=== PATIENT | female | born 1980 | race Caucasian/White ===

== ENCOUNTER 2021-03-09 10:32 | Outpatient (REF) | payer OTHER, SELFPAY ==
[2021-03-12 15:01] LABS: HPV mRNA E6/E7 rflx Not Detected (Not Detected)
== END 2021-03-09 10:33 | disposition home or self-care (01) ==
LOC: HO.LAB 10:32
PROVIDERS: PCP Hospitalist; Visit Provider Advanced Practice Midwife
DX: Z01.419 Encounter for gynecological examination (general) (routine) without abnormal findings (principal); Z79.899 Other long term (current) drug therapy
CPT/HCPCS: 87624; 88142

== ENCOUNTER 2025-05-06 13:28 | Outpatient (AMB) | payer OTHER, SELFPAY ==
--- NOTE | 2025-05-06 13:31 | MHC.OFFVIS ---
Vital Signs 05/06/25 13:34 Height 5 ft 10 in Weight 196 lb BMI 28.1 BP 122/74 Blood Pressure Location Rt brachial Position Sitting Intake Visit Reasons: New patient Annual Allergies oxycodone (From Percocet) Adverse Reaction (Mild, Verified 05/06/25 13:41) NAUSEA & VOMITING seasonal Allergy (Unknown, Uncoded 05/06/25 13:41) unknown Medication List - Last Reconciled 05/06/25 by Arianna Zhang CNM fluticasone propionate 50 mcg/actuation 1 spray intranasal DAILY loratadine (Claritin) 10 mg PO DAILY norethindrone-ethin estradiol 1-35 mg-mcg (Nortrel) 1 tab PO DAILY sertraline 12.5 mg PO Is last menstrual period known: Yes Last menstrual period: 04/28/25 HPI HPI New patient Annual: Details: Patient is here for practice nurse annual exam. It has been a few years she has not sexually active for the last 10 years since her divorce. She is on control pills and wants to stay on them because she likes how they make her periods and she does not want to change them currently she gets them through her primary care provider. She has Ahsan's and is going to be seeing an customer service officer to discuss that coming up. She is healthy she walks the dog every day she takes care of her mother who is legally blind and lives with her along with her 17-year-old daughter who is home schooled. On the same property her brother and his live with the dog so they all support 1 another. She is starting to experience some hot flashes but oddly enough during the placebo week only. She is wondering about brain fog and other symptoms. She recently had a colonoscopy and is all clear for the next 10 years she does strength training and a circuit in her neighborhood at least twice a week. She has no concerns at all about infections or abnormal discharge and declines cultures. She had a primary for her baby who was breech put who would not be verted. She was part of the centering group for her during her care 17 years ago at our midwifery practice at [facility], on the 2nd floor [facility]. [facility] Medical History Dermoid cyst Surgical History Hx of section Social History Alcohol intake: current Alcohol intake frequency: holidays/special occasions only Patient Tobacco Use Status: Never used Tobacco Gender identity: Female Female Reproductive History Menstrual Age of Menarche: 10 Duration of menses: 3-5 days Date of last menstrual period: 04/28/25 control method: pills Total pregnancies: 1 Number of Living Children: 1 Date of last pap smear: 03/10/21 History of abnormal pap smear: Yes (History for the 2020 Pap indicates that the 2017 Pap had positive HPV.) History of abnormal mammogram: No Physical Exam Vital Signs: Last Vital Signs BP 122/74 05/06/25 13:34 BMI result Body Mass Index 28.1 Const General: healthy appearing, comfortable, no acute distress, well developed and alert Nutritional Appearance: average body habitus Orientation/consciousness: patient oriented x3 Limitations: no limitations HEENT Head: Yes normocephalic Neck Neck: Yes normal visual inspection Chest Chest palpation & inspection: normal inspection of the chest Breast/axilla inspection: normal inspection of the breasts and normal inspection of the axillae Breast/axilla palpation: normal palpation of the breasts and normal palpation of the axillae Resp Effort & Inspection: normal respiratory effort GI Inspection: Yes normal to inspection, No Abdominal wall edema and No distended Palpation (GI): Soft to palpation and nontender Other: External exam within normal limits vagina is pink and moist healthy appearing normal scant vaginal mucus nulliparous cervix is pink and smooth healthy appearing with mucus plug consistent with OCP use. Uterus small midposition mobile nontender adnexa nontender nonenlarged good tone with Kegel. General: Yes bladder normal to palpation External Female Exam: normal external appearance and normal appearance of the urethra Speculum Exam - Vagina: normal appearance of the vagina, normal palpation and normal vaginal discharge Speculum Exam - Cervix: normal appearance of the cervix, normal palpation and nontender Bimanual exam- vagina & uterus: normal bimanual exam, normal palpation, uterine size normal, bladder normal to palpation, consistency normal, normal palpation, uterine mobility normal, uterine shape normal, No Cervical tenderness present, non-tender and no cervical motion tenderness Bimanual Exam- Adnexa, other: normal adnexae, no masses, normal and No adnexal tenderness Neuro General: patient oriented x3 Results Reviewed Results Reviewed: Gynecologic Cytology [id number] Name: Danae Downing Age/Sex: 40/F Attending: Arianna Zhang CNM : 1980 Submitted by: Arianna Zhang CNM Copies to: Silvano Dawson MD MR #: [id number] Status: DEP REF Collected: 03/09/21 Location: .LAB Received: 03/10/21 Interpretation Satisfactory for evaluation. No endocervical cells seen. Cytolysis noted. Negative for intraepithelial lesion or malignancy. HPV mRNA E6/E7: NOT DETECTED This assay detects E6/E7 viral messenger RNA (mRNA) from 14 high-risk HPV types (16, 18, 31, 33, 35, 39, 45, 51, 52, 56, 58, 59, 66, 68) HPV testing performed by [facility], [place], [place]. See reference laboratory portion of the EMR for entire report. Clinical Information LMP: 02/23/21 Previous PAP test: 2017, Neg HPV+ Material Received ThinPrep- Cervical Copies To Silvano Dawson MD [address] [place], [place] [id number] Arianna Zhang [address] Bergeron [address] [place] [address] [id number] Electronically Signed By: KELLY Preciado (ASCP) 03/19/21 1253 The Pap Test is a screening procedure with the inherent possibility of both false negative and false positive results. Results should be interpreted in the context of historic and current clinical findings. Reliability of the Pap Test is enhanced by performing the test on a regular repetitive basis. Patient: Danae Downing Age/Sex: 40/F MR#: [id number] Page 1 of 1 Assessment & Plan Assessment & Plan (1) Well woman exam with routine gynecological exam: Code(s): Z01.419 - Encounter for gynecological examination (general) (routine) without abnormal findings Category: Medical (2) Counseling for control, oral contraceptives: Code(s): Z30.09 - Encounter for other general counseling and advice on contraception Category: Medical (3) Cervical cancer screening: Comment: (history for the 2020 Pap indicated that the 2017 Pap was negative cytology with positive HPV) 03/09/21 pap = neg /neg hpv; 05/06/2025 Pap done, Code(s): Z12.4 - Encounter for screening for malignant neoplasm of cervix Category: Medical (4) Perimenopause: Code(s): N95.1 - Menopausal and female climacteric states Category: Medical Plan -----Discussed in this visit the following: healthy balanced diet, regular and consistent exercise, getting recommended health screens, doing the best she can for her particular health concerns, kegel exercises, pap smear screening and followup recommendations, mammography screening and SBE, normal changes in cycles in her life stage--- . For now she wants to continue on the OCPs and we will continue getting them with her primary care provider as that is working well currently. Discussed raghu menopausal changes and considerations for remaining on hormone after menopause. I gave her the name of practitioner who is got expertise in menopausal discussions, Mary Carnes CNM, whom she knows, and from our practice she was giving , and she will look her up and consider consultation with her should she choose. If this Pap is negative she may opt to just return for Pap in 5 years she declined for me to give her the prescription for the control pills at this time she will continue with her primary providing them she is up-to-date on her mammograms. Orders: Orders Pap Smear Today Z01.419 - Encounter for gynecological examination (general) (routine) without abnormal findings, Z12.4 - Encounter for screening for malignant neoplasm of cervix Coding Level of Care Code New Pt Prev Care 40-64y([id number]) Diagnoses Well woman exam with routine gynecological exam Z01.419 Counseling for control, oral contraceptives Z30.09 Cervical cancer screening Z12.4 Perimenopause N95.1
[2025-05-06 13:34] VITALS: BP 122/74; BMI 28.1
--- OUTSIDE RECORDS SUMMARY | 2025-05-06 14:36 | XMS_ITS ---
Author Name [facility] Organization Unknown Care Team Organization Name Specialty Phone Email Start Date End Da te [facility] Sandra Muhammad Primary Care 03/22/2022 01/01/2024
--- OUTSIDE RECORDS SUMMARY | 2025-05-06 14:36 | XMS_ITS | Clinical Summary ---
Author Organization 175 [facility] Address [address] [place] [address] Phone Care Team Providers Care Drywall Applicator Name Role Phone Sandra Muhammad Primary Care Provider + Allergies Active Allergy Reactions Criticality Noted Date Comments Other 01/15/2020 Seasonal Allergies Medications fluticasone propionate (FLONASE) 50 mcg/actuation nasal spray SPRAY 2 SQUIRTS IN EACH NOSTRIL ONCE DAILY 4 Active loratadine (CLARITIN) 10 mg tablet Take 1 Tab by mouth daily as needed for Allergies. 0 Active LORazepam (ATIVAN) 1 mg tablet Take 1/2-1 tab daily prn 3 Active norethindrone-e thinyl estradiol (Nortrel 1/35, 28,) 1-35 mg-mcg per tablet Take 1 tablet by mouth 1 (one) time each day. 28 tablet 12 4 Active polyethylene glycol (Golytely) 236-22.74-6.74 -5.86 gram solution Take 4L by mouth once for one dose. May substitue any PEG. Starting at 6PM the night before your procedure drink 1 8oz glasses at your own pace until you complete half of the gallon. Finish 2nd half of the gallon 5 hours before your procedure. 4000 mL 5 Active bisacodyL (DULCOLAX) 5 mg EC tablet Take 2 tablets by mouth right before beginning bowel prep. See instructions provided by the office 2 tablet 5 Active sertraline (ZOLOFT) 25 mg tabletIndicatio ns:Anxiety Take 0.5 tablets (12.5 mg total) by mouth 1 (one) time each day. 15 tablet 3 5 Active Active Problems Problem Noted Date Diagnosed Date Allergic rhinitis 04/17/2024 Palpitations 08/16/2017 Overview (04/17/2024): Comments: liekly due to anxiety, seeing a therapist Anxiety PVC's (premature ventricular contractions) Immunizations Immunization Administration Dates Next Due Influenza Quadravalent, MDCK , 0.5ml, preservative free (Flucelvax) 6mo and older 05/03/2021 Tdap Tetanus diptheria acell ular pertussis (Boostrix; Adacel) 7yo and older 05/15/2017 Surgical History Surgery Date Site/Laterality Comments SECTION PROCEDURE: HISTORICAL DELIVERY Medical History Medical History Date Comments Contraception 08/16/2017 DX:Contraception Allergic rhinitis DX:Allergic rh initis Anxiety PVC's (premature ventricular contractions) Family History Medical History Relation Name Comments Liver disease Father Breast cancer Maternal Grandmother Thyroid disease Mother Heart attack Paternal Grandmother Relation Name Status Comments Father (Age 61) Maternal Grandmother Mother Alive Paternal Grandmother Social History Tobacco Use Types Packs/Day Years Used Date Smoking Tobacco: Never Smokeless Tobacco: Never Alcohol Use Standard Drinks/Week Comments Yes 1 (1 standard drink = 0.6 oz pur e alcohol) Housing Instability Answer Date Recorde d Are you worried that in the next 2 months you may not have stable housing? No 06/21/2024 Food Access & Nutrition Answer Date Rec orded Do you have access to a vari ety of food including fruits and vegetables? Yes 06/21/2024 Access to Healthcare Answer Date Record ed Within the last 3 months, ho w many times did you visit the emergency department for your medical care? 0 06/21/2024 Health Literacy Answer Date Recorded How often do you need to hav e someone help you when you read instructions, pamphlets, or other written material from your doctor or pharmacy? Never 06/21/2024 Caregiver: How often do you need to have someone help you when you read instructions, pamphlets, or other written material from your doctor or pharmacy? Not on file 06/21/2024 Financial Risk Answer Date Recorded How hard is it for you to pa y for the very basics like food, housing, medical care, and air conditioning / heating? Not very hard 06/21/2024 Transportation Answer Date Recorded Has the lack of transportati on kept you from meetings, work, or from getting things needed for daily living? No Has the lack of transportati on kept you from medical appointments or from getting medications? No 06/21/2024 Social Isolation Answer Date Recorded How often do you feel lonely or isolated from th ose around you? Rarely 06/21/2024 Food Risk Answer Date Recorded Within the past 12 months we worried whether our food would run out before we got money to buy more. Never true 06/21/2024 Within the past 12 months th e food we bought just didn't last and we didn't have money to get more. Never true 06/21/2024 Dependent Care Answer Date Recorded Do you need help finding or paying for care for your loved ones. For example, child welfare consultant or elderly care for an older adult? No 06/21/2024 Education Answer Date Recorded Do you think completing more education or training, like finishing a GED, going to college, or learning a trade, would be helpful for you? No 06/21/2024 Employment and Income Answer Date Recor ded During the last four weeks, have you been actively looking for work? No 06/21/2024 Living Situation Answer Date Recorded What is your living situation? Unrecognized valu e 06/21/2024 Interpersonal Safety Answer Date Record ed Physical Abuse Unrecognized value 08/26/2024 Verbal Abuse Unrecognized value 08/26/2024 Comments No Sex and Gender Information Value Date Recorded Sex Assigned at Female 07/03/2024 11:59 AM EST Legal Sex Female 4:56 PM EST Gender Identity Female 07/03/2024 11:59 AM EST Sexual Orientation Straight 07/03/2024 11 :59 AM EST Obstetrics History Para Term AB IAB SAB Ectopic Multiple Livin g Live Births 1 Last Filed Vital Signs Vital Sign Reading Time Taken Comments Blood Pressure 126/78 01/16/2025 3:05 PM EDT Pulse 69 01/16/2025 3:05 PM EDT Temperature 36.3 C (97.3 F) 01/16/2025 3:05 PM EDT Respiratory Rate 18 01/16/2025 3:05 PM EDT Oxygen Saturation 97% 01/16/2025 3:05 PM EDT Inhaled Oxygen Concentration - - Weight 86.2 kg (190 lb) 01/16/2025 3:05 PM EDT Height 177.8 cm (5' 10 ) 01/16/2025 3:05 PM EDT Body Mass Index 27.26 01/16/2025 3:05 PM EDT Plan of Treatment Upcoming Encounters Date Type Department Care Team (Late st Contact Info) Description 07/04/2025 9:00 AM EST Office Visit Internal Medicine - [place] [address] [facility] [address] [place] [id number] Sandra Muhammad PA [address] [facility] [address] [place] [address] Health Maintenance Due Date Last Done Comments Drug Screen 1980 Non-Opioid Controlled Substance Agreement 1980 Hepatitis B Vaccines (1 of 3 - 19+ 3-dose series) 1998 Cervical Cancer Screening: Pap Smear 2000 HPV Vaccines (1 - 3-dose SCDM series) 2006 HIV Screening 04/23/2022 Hepatitis C Screening 04/23/2022 COVID-19 Vaccine ( season) 2025 02/14/2022, 04/18/2021, 09/24/2020, Additional history exists Influenza Vaccine (#1) 2025 4, 01/30/2023, 05/02/2022, Additional history exists Social Influencers of Health Screening 06/21/2025 06/21/2024 Breast Cancer Screening 07/15/2026 07/16/19 25, 05/05/2023, 05/02/2022, Additional history exists DTaP,Tdap,and Td Vaccines (2 - Td or Tdap) 05/15/2027 05/15/2017 Cholesterol Screening (Lipid Panel) 06/21/2029 06/21/2024, 07/04/2023 Colorectal Cancer Screening: Colonoscopy 08/26/2034 08/26/2024 RSV Immunization Adult Patients (1 - 1-dose 75+ series) 2054 Depression Screening Completed 06/21/2024, 10/30/19 24 HIB Vaccines Aged Out No longer eligi ble based on patient's age to complete this topic Hepatitis A Vaccines Aged Out No long er eligible based on patient's age to complete this topic IPV Vaccines Aged Out No longer eligi ble based on patient's age to complete this topic MMR Vaccines Aged Out No longer eligi ble based on patient's age to complete this topic Meningococcal ACWY Vaccine Aged Out N o longer eligible based on patient's age to complete this topic Meningococcal B Vaccine Aged Out No l onger eligible based on patient's age to complete this topic Pneumococcal Vaccine: Pediatrics (0 to 5 Years) and At-Risk Patients (6 to 49 Years) Aged Out No longer eligible based on patient's age to complete this topic RSV Immunization Patients Under 20 months Aged Out No longer eligible based on patient's age to complete this topic Varicella Vaccines Aged Out No longer eligible based on patient's age to complete this topic Procedures Procedure Name Priority Date/Time Associated Diagnosis Comments COLONOSCOPY Routine 08/26/2024 12:14 PM EDT Colon cancer screening MG MAMMO DIGITAL SCREENING W JAYME BILAT Routine 07/15/2024 8:17 AM EST Encounter for screening mammogram for malignant neoplasm of breast LIPID PANEL WITH REFLEX TO DIRECT LDL Routine 06/21/2024 8:03 AM EST Health care maintenance HM DEPRESSION SCREENING Routine 10/30/2023 from Last 3 Months or Most Recently Relevant to Health Maintenance Results * COLONOSCOPY Anesthesia - MAC; SP ENDOSCOPY (08/26/2024 12:14 PM EDT) Anatomical Region Laterality Modality Endoscopy 08/26/2024 12:1 4 PM EDT Impressions 08/26/2024 12:47 PM EDT - The examined portion of the ileum was normal. - Internal hemorrhoids. - The entire examined colon is normal. - No specimens collected. Recommendation: - Repeat colonoscopy in 10 years for screening purposes. Narrative 08/26/2024 12:47 PM EDT [facility] GI Patient Name: Duran Celeste Procedure Date: 08/26/2024 12:14 PM Date of : 1980 Age: 44 Gender: Female Note Status: Finalized Attending MD: Peyton Polanco MD, Procedure Date No Time: 08/26/2024 Procedure: Colonoscopy Indications: Screening for colorectal malignant neoplasm Providers: Peyton Polanco MD Referring MD: Sandra Muhammad PA-C Medicines: Propofol per Anesthesia Complications: No immediate complications. Estimated Blood Loss: Estimated blood loss: none. Procedure: Pre-Anesthesia Assessment: - ASA Grade Assessment: II - A patient with mild systemic disease. After I obtained informed consent, the scope was passed under direct vision. Throughout the procedure, the patient's blood pressure, pulse, and oxygen saturations were monitored continuously.The Colonoscope was introduced through the anus and advanced to the terminal ileum. The colonoscopy was performed without difficulty. The patient tolerated the procedure well. The quality of the bowel preparation was good. Findings: The perianal and digital rectal examinations were normal. The terminal ileum appeared normal. Internal hemorrhoids were found during retroflexion. The hemorrhoids were Grade I (internal hemorrhoids that do not prolapse). The entire examined colon appeared normal. Procedure Code(s): --- Professional --- G0121, Colorectal cancer screening; colonoscopy on individual not meeting criteria for high risk Diagnosis Code(s): --- Professional --- Z12.11, Encounter for screening for malignant neoplasm of colon CPT copyright 2020 [employer]. All rights reserved. The codes documented in this report are preliminary and upon reinforcing bar setter review may be revised to meet current compliance requirements. Peyton Polanco MD 08/26/2024 12:46:46 PM This report has been signed electronically.Peyton Polanco MD Number of Addenda: 0 Note Initiated On: 08/26/2024 12:14 PM Scope In: Scope Out: Endoscopy Department at [facility] - [address] [place] [phone] Procedure Note Peyton Polanco MD - 08/26/2024 [facility] GI Patient Name: Duran Celeste Procedure Date: 08/26/2024 12:14 PM Date of : 1980 Age: 44 Gender: Female Note Status: Finalized Attending MD: Peyton Polanco MD, Procedure Date No Time: 08/26/2024 Procedure: Colonoscopy Indications: Screening for colorectal malignant neoplasm Providers: Peyton Polanco MD Referring MD: Sandra Muhammad PA-C Medicines: Propofol per Anesthesia Complications: No immediate complications. Estimated Blood Loss: Estimated blood loss: none. Procedure: Pre-Anesthesia Assessment: - ASA Grade Assessment: II - A patient with mild systemic disease. After I obtained informed consent, the scope was passed under direct vision. Throughout theprocedure, the patient's blood pressure, pulse, and oxygen saturations were monitored continuously.The Colonoscope was introduced through the anus and advanced to the terminal ileum. The colonoscopy was performed without difficulty. The patient tolerated the procedure well. The quality of the bowel preparation was good. Findings: The perianal and digital rectal examinations were normal. The terminal ileum appeared normal. Internal hemorrhoids were found duringretroflexion. The hemorrhoids were Grade I (internal hemorrhoids that do not prolapse). The entire examined colon appeared normal. Procedure Code(s): --- Professional --- G0121, Colorectal cancer screening; colonoscopy on individual not meeting criteria for high risk Diagnosis Code(s): --- Professional --- Z12.11, Encounter for screening for malignantneoplasm of colon CPT copyright 2020 [employer]. All rights reserved. The codes documented in this report are preliminary and upon reinforcing bar setter reviewmay be revised to meet current compliance requirements. Peyton Polanco MD 08/26/2024 12:46:46 PM This report has been signed electronically.Peyton Polanco MD Number of Addenda: 0 Note Initiated On: 08/26/2024 12:14 PM Scope In: Scope Out: Endoscopy Department at [facility] - [address] [place] [phone] IMPRESSION: - The examined portion of the ileum was normal. - Internal hemorrhoids. - The entire examined colon is normal. - No specimens collected. Recommendation: - Repeat colonoscopy in 10 years for screening purposes. us Peyton Polanco MD GI~PROCEDURE ORDERABLES Final Result * MG Mammo Digital Screening w Jayme bilat (07/15/2024 8:17 AM EST) Anatomical Region Laterality Modality Breast Bilateral Mammography 07/15/2024 3:01 PM EST Impressions 07/15/2024 3:20 PM EST No mammographic evidence of malignancy. No suspicious interval change. A negative mammogram in the presence of a clinically suspicious palpable abnormality does not preclude the possibility of malignancy or alter the indications for biopsy. ASSESSMENT: BI-RADS 1: NEGATIVE RECOMMENDATION(S): 1: Routine screening mammogram BILATERAL in 1 year. Mamm[facility] location: [facility] [address], [address] -------- FINAL REPORT -------- Dictated By: Kody Santana Dictated Date: 07/15/2024 15:01 ET Assigned Physician: Kody Santana Reviewed and Electronically Signed By: Kody Santana Signed Date: 07/15/2024 15:20 ET Workstation ID: [id number] Transcribed By: Self Edit Transcribed Date: 07/15/2024 15:01 ET Narrative 07/15/2024 3:20 PM EST EXAM: SCREENING MAMMOGRAPHY, BILATERAL HISTORY: SCREENING. Maternal grandmother diagnosed with breast cancer age 80. COMPARISON: 05/05/2023, 05/02/2022, 04/29/2021, 04/27/2020 TECHNIQUE: Synthesized CC and MLO projections of each breast. Tomosynthesis of each breast in the CC and MLO projections. ADDITIONAL IMAGING: None Computer-aided detection was employed with the [employer] AI 3-D. TISSUE DENSITY: There are scattered areas of fibroglandular density. (BI-RADS category B) FINDINGS: RIGHT BREAST: No suspicious mass. No suspicious calcification. No distortion. No additional suspicious right breast findings LEFT BREAST: No suspicious mass. No suspicious calcification. No distortion. No additional suspicious left breast findings Procedure Note Kody Santana MD - 07/15/2024 EXAM: SCREENING MAMMOGRAPHY, BILATERAL HISTORY: SCREENING. Maternal grandmother diagnosed with breast cancerage 80. COMPARISON: 05/05/2023, 05/02/2022, 04/29/2021, 04/27/2020 TECHNIQUE: Synthesized CC and MLO projections of each breast.Tomosynthesis of each breast in the CC and MLO projections. ADDITIONAL IMAGING: None Computer-aided detection was employed with the [employer] AI 3-D. TISSUE DENSITY: There are scattered areas of fibroglandular density.(BI-RADS category B) FINDINGS: RIGHT BREAST: No suspicious mass. No suspicious calcification. No distortion. Noadditional suspicious right breast findings LEFT BREAST: No suspicious mass. No suspicious calcification. No distortion. Noadditional suspicious left breast findings IMPRESSION: No mammographic evidence of malignancy. No suspicious interval change. A negative mammogram in the presence of a clinically suspicious palpableabnormality does not preclude the possibility of malignancy or alter theindications for biopsy. ASSESSMENT: BI-RADS 1: NEGATIVE RECOMMENDATION(S): 1: Routine screening mammogram BILATERAL in 1 year. Mamm[facility] location: [facility] at [address], [address] -------- FINAL REPORT -------- Dictated By: Kody Santana Dictated Date: 07/15/2024 15:01 ET Assigned Physician: Kody Santana Reviewed and Electronically Signed By: Kody Santana Signed Date: 07/15/2024 15:20 ET Workstation ID: [id number] Transcribed By: Self Edit Transcribed Date: 07/15/2024 15:01 ET Sandra MATOS IM BI PROCEDURES Final Result * (ABNORMAL) Lipid panel with reflex to direct LDL (06/21/2024 8:03 AM EST) Cholesterol 224(H) 0 - 200 mg/dL LAB CHEMISTRY METHOD 06/21/2024 10:38 AM EST [facility] Triglycerides 88 0 - 150 mg/dL LAB CHEMISTRY METHOD 06/21/2024 10:38 AM EST [facility] HDL 81 >=40 mg/dL LAB CHEMISTRY METHOD 06/21/2024 10:38 AM [facility] LDL Calculated 125(H) 0 - 100 mg/dL LAB CHEMISTRY METHOD 06/21/2024 10:38 AM [facility] VLDL Cholesterol Izaiah 17.6 mg/dL LAB CHEMISTRY METHOD 06/21/2024 10:38 AM [facility] Non HDL Chol. (LDL+VLDL) 143 <145 mg/dL LAB CHEMISTRY METHOD 06/21/2024 10:38 AM [facility] Chol/HDL Ratio 2.8 0.0 - 4.4 LAB CHEMISTRY METHOD 06/21/2024 10:38 AM [facility] Blood Venous blood specimen / Unknown Venipuncture / Unknown 06/21/2024 8:03 AM EST 06/21/2024 8:03 AM EST Sandra MATOS LAB BLOOD ORDERABLES Fin al Result [facility] [address] [place] [address], * Depression Screening (10/30/2023) [facility] Depression Screening Abstracted Historical Provider HEALTH MAINTENANCE Final Result from Last 3 Months or Most Recently Relevant to Health Maintenance Insurance [facility] Advance Directives Documents on File Type Date Recorded Patient Exceptional Student Education Aide Expl anation Power of Activities Specialist 08/26/2024 11:45 AM Heal Care Proxy Care Teams Drywall Applicator Relationship Specialty Start Date End Date Sandra Muhammad PA [address] [facility] [address] [place] [address] PCP - General Primary Care 06/21/24
--- OUTSIDE RECORDS SUMMARY | 2025-05-06 14:36 | XMS_ITS | Clinical Summary ---
Author Organization [facility] Address [address] [place] [phone] Phone Care Team Providers Care Kettle Hand Name Role Phone Sandra Muhammad Primary Care Provider + Social History Tobacco Use Types Packs/Day Years Used Date Smoking Tobacco: Never Assessed Education Answer Date Recorded Are you interested in more education? Not on lisa e 12/16/2024 Are you concerned about learning? Not on file 12/16/2024 No 12/16/2024 No 12/16/2024 Digital Access Answer Date Recorded No 12/16/2024 No 12/16/2024 Reliable internet access at home? Not on file 12/16/2024 Device with a working camera? Not on file Comments Unknown Sex and Gender Information Value Date Recorded Sex Assigned at Not on file Legal Sex Female 9:47 AM EDT Gender Identity Not on file Sexual Orientation Not on file Plan of Treatment Upcoming Encounters Date Type Department Care Team (Late st Contact Info) Description 06/24/2025 9:00 AM EST Office Visit [facility] [address] [place] [phone] Rayna Cooney MD [address] [place] [phone] [email or web address] Health Maintenance Due Date Last Done Comments Adult Td,Tdap Booster 1980 LIPID PANEL 1980 DEPRESSION SCREENING 1991 SMOKING Hx and SMOKELESS TOB ACCO SCREENING 1992 HEPATITIS C SCREENING 1997 HIV ONE-TIME SCREENING (18-6 5 YEARS) 1997 PAP SMEAR 2000 MAMMOGRAM 2019 COLOGUARD 2024 COLONOSCOPY 2024 COLORECTAL CANCER SCREENING 2024 FIT TEST 2024 FOBT 2024 SIGMOIDOSCOPY 2024 VIRTUAL COLONOSCOPY 2024 INFLUENZA VACCINE (#1) 2024 COVID-19 VACCINE ( - 2024-2 6 season) 2025 HEPATITIS A VACCINES Aged Out No long er eligible based on patient's age to complete this topic HIB VACCINES Aged Out No longer eligi ble based on patient's age to complete this topic MENINGOCOCCAL VACCINES (ACWY) Aged Out No longer eligible based on patient's age to complete this topic MENINGOCOCCAL VACCINES (B) Aged Out N o longer eligible based on patient's age to complete this topic PNEUMOCOCCAL VACCINES (0-49 years) Aged Out No longer eligible based on patient's age to complete this topic Medical Devices Not on file Insurance [employer] [facility] Care Teams Kettle Hand Relationship Specialty Start Date End Date Sandra Muhammad PA [address] [address] PCP - General 11/08/24 Additional Source Comments The information contained in this document represents components of the legal health record. It is not the complete legal health record.[facility]
== END 2025-05-06 15:36 | disposition home or self-care (01) ==
LOC: HO.HWSM 13:28
PROVIDERS: PCP Hospitalist; Visit Provider Advanced Practice Midwife
DX: Z01.419 Encounter for gynecological examination (general) (routine) without abnormal findings (principal); Z30.09 Encounter for other general counseling and advice on contraception; Z12.4 Encounter for screening for malignant neoplasm of cervix; N95.1 Menopausal and female climacteric states
CPT/HCPCS: 99386; 99459

== ENCOUNTER 2025-05-06 13:28 | Outpatient (REF) | payer OTHER, SELFPAY | END 2025-05-06 13:29 | disposition home or self-care (01) | LOC: HO.LNP 13:28 | PROVIDERS: PCP Hospitalist; Visit Provider Advanced Practice Midwife | DX: Z01.419 Encounter for gynecological examination (general) (routine) without abnormal findings (principal); N95.1 Menopausal and female climacteric states; Z30.09 Encounter for other general counseling and advice on contraception | CPT/HCPCS: 87626; 88175 ==